=== PATIENT | female | born 1995 | race Caucasian/White ===

== ENCOUNTER 2018-08-15 13:42 | Emergency (ER) | payer OTHER, BC ==
[~2018-08-15] VITALS: Ht 160 cm; Wt 102.1 kg
[2018-08-15] MEDS ORDERED: NOHOMEMEDICATIONS (13:57)
[2018-08-15 14:54] VITALS: BP 119/60
== END 2018-08-15 14:54 | disposition home or self-care (01) ==
LOC: M.ERS 13:42 → EDBD 13:42 → M.ERS 14:54
DX: S93.492A Sprain of other ligament of left ankle, initial encounter (principal); F17.200 Nicotine dependence, unspecified, uncomplicated; X50.1XXA Overexertion from prolonged static or awkward postures, initial encounter; Y92.89 Other specified places as the place of occurrence of the external cause; Y99.0 Civilian activity done for income or pay; Y99.8 Other external cause status